=== PATIENT | female | born 1980 ===

== ENCOUNTER 2018-06-01 10:17 | Emergency (ER) | payer SELFPAY ==
[2018-06-01 10:24] VITALS: BMI 35.6
[2018-06-01] MEDS ORDERED: Tdap Vaccine 0.5 ml Vial (10-64 yrs) IM ONE ×2 (11:19→12:23)
[2018-06-01] MEDS ORDERED: Oxycodone/Acetaminophen 5/325 mg Tab PO STA (11:42)
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
--- NOTE | 2018-06-01 12:03 | RAD ---
Date of service: 06/01/2018 PROCEDURE: Radiographs of the Left Shoulder HISTORY: Posttraumatic left shoulder pain. COMPARISON: No prior. FINDINGS: BONES: Normal. No fracture. JOINTS: Normal. Glenohumeral and acromioclavicular joints preserved. No osteoarthritis. SOFT TISSUES: Normal. OTHER FINDINGS: None. IMPRESSION: Normal radiographs of the left shoulder.
[2018-06-01] MEDS ORDERED: Oxycodone/Acetaminophen 5/325 mg Tab ONE (12:31)
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
[2018-06-01] MEDS ORDERED: Lidocaine 1% w Epi 1:100,000 Inj ONE (13:51)
[2018-06-01] MEDS ORDERED: Povidone Iodine Topical 10% Sol ONE (13:52)
[2018-06-01 14:30] VITALS: BP 149/83; PULSE 74; RESP 18; TEMP 98.6
[2018-06-01] MEDS ORDERED: Lidocaine/Epi 1% 1:100000 20 ML IJ ONE (14:50)
[2018-06-01 16:56] VITALS: O2SAT 98
== END 2018-06-01 14:28 | disposition home or self-care (01) ==
LOC: H.ER 10:17
DX: S01.81XA Laceration without foreign body of other part of head, initial encounter (principal); S21.112A Laceration without foreign body of left front wall of thorax without penetration into thoracic cavity, initial encounter; S09.90XA Unspecified injury of head, initial encounter; S43.402A Unspecified sprain of left shoulder joint, initial encounter; W22.8XXA Striking against or struck by other objects, initial encounter; Y92.480 Sidewalk as the place of occurrence of the external cause; I10 Essential (primary) hypertension